=== PATIENT | female | born 1970 | race Caucasian/White ===

== ENCOUNTER → 2016-11-19 | Outpatient (CLI) | payer OTHER ==
[2016-11-19 12:14] LABS: MEAN CORPUSCULAR HEMOGLOBIN 29.1 pg (27.0-33.0); MEAN CORPUSCULAR HGB CONC 33.8 g/dl (32.0-36.5); MEAN CORPUSCULAR VOLUME 86.1 fl (80.0-96.0); RED CELL DISTRIBUTION WIDTH 13.5 % (11.5-14.5)
[2016-11-19 13:45] LABS: ALBUMIN 3.8 GM/DL (3.2-5.2); ALKALINE PHOSPHATASE 97 U/L (45-117); ALT/SGPT 27 U/L (12-78); ANION GAP 9 MEQ/L (8-16); AST/SGOT 14 U/L (15-37); BILIRUBIN,TOTAL 0.6 MG/DL (0.2-1.0); BLOOD UREA NITROGEN 12 MG/DL (7-18); CALCIUM LEVEL 8.8 MG/DL (8.5-10.1); CARBON DIOXIDE LEVEL 24 MEQ/L (21-32); CHLORIDE LEVEL 105 MEQ/L (98-107); CHOLESTEROL LEVEL 183 MG/DL (<200); CREATININE FOR GFR 0.95 MG/DL (0.55-1.02); FERRITIN 20 NG/ML (8-252); GLOMERULAR FILTRATION RATE > 60.0 (>58); GLUCOSE, FASTING 93 MG/DL (70-105); PERCENT SATURATION 21.8 % (13.2-37.4); POTASSIUM SERUM 4.2 MEQ/L (3.5-5.1); SODIUM LEVEL 138 MEQ/L (136-145); TOTAL IRON BINDING CAPACITY 385 UG/DL (250-450); TOTAL PROTEIN 7.6 GM/DL (6.4-8.2); TRIGLYCERIDES LEVEL 135 MG/DL (<150)
== END ==
LOC: M WUC 08:47
PROVIDERS: ATTEND Physician Assistant
DX: D50.0 Iron deficiency anemia secondary to blood loss (chronic) (principal)

== ENCOUNTER → 2018-05-04 | Outpatient (CLI) | payer BC | LOC: M WHC 13:08 | DX: Z12.31 Encounter for screening mammogram for malignant neoplasm of breast (principal) | CPT/HCPCS: 77067 ==

== ENCOUNTER → 2018-05-04 | Outpatient (REF) | payer OTHER ==
[2018-05-06 15:28] LABS: HPV HYBRID CAPTURE II Negative (Negative)
== END ==
LOC: M SFHCWAGY 16:16
DX: Z12.4 Encounter for screening for malignant neoplasm of cervix (principal)

== ENCOUNTER → 2018-05-31 | Outpatient (CLI) | payer OTHER ==
[2018-05-31 12:47] LABS: HEMATOCRIT 36.6 % (36.0-47.0); HEMOGLOBIN 11.5 g/dl (12.0-15.5); MEAN CORPUSCULAR HEMOGLOBIN 25.1 pg (27.0-33.0); MEAN CORPUSCULAR HGB CONC 31.4 g/dl (32.0-36.5); MEAN CORPUSCULAR VOLUME 79.9 fl (80.0-96.0); PLATELET COUNT, AUTOMATED 337 10^3/uL (150-450); RED BLOOD COUNT 4.58 10^6/uL (4.00-5.40); RED CELL DISTRIBUTION WIDTH 15.9 % (11.5-14.5); WHITE BLOOD COUNT 7.9 10^3/uL (4.0-10.0)
[2018-05-31 13:05] LABS: ALBUMIN 3.6 GM/DL (3.2-5.2); ALBUMIN/GLOBULIN RATIO 0.97 (1.00-1.93); ALKALINE PHOSPHATASE 97 U/L (45-117); ALT/SGPT 27 U/L (12-78); ANION GAP 11 MEQ/L (8-16); AST/SGOT 17 U/L (7-37); BILIRUBIN,TOTAL 0.5 MG/DL (0.2-1.0); BLOOD UREA NITROGEN 15 MG/DL (7-18); CARBON DIOXIDE LEVEL 23 MEQ/L (21-32); CHLORIDE LEVEL 106 MEQ/L (98-107); CHOLESTEROL LEVEL 175 MG/DL (<200); CHOLESTEROL RISK RATIO 4.069 (<5); FOLATE 16.2 NG/ML; FREE T4 0.99 NG/DL (0.76-1.46); GLOMERULAR FILTRATION RATE > 60.0 (>58); GLUCOSE, FASTING 87 MG/DL (70-100); HDL CHOLESTEROL 43 MG/DL (>40); LDL CHOLESTEROL 103 MG/DL (<100); NON-HDL-C 132 MG/DL; POTASSIUM SERUM 4.2 MEQ/L (3.5-5.1); SODIUM LEVEL 140 MEQ/L (136-145); TOTAL PROTEIN 7.3 GM/DL (6.4-8.2); TRIGLYCERIDES LEVEL 143 MG/DL (<150)
== END ==
LOC: M WUC 08:46
DX: F41.9 Anxiety disorder, unspecified (principal); E78.49 Other hyperlipidemia
CPT/HCPCS: 82746

== ENCOUNTER → 2018-09-21 | Outpatient (CLI) | payer BC, OTHER ==
[~2018-09-21] MED LIST: ISOVUE-370 76% 100ML VIAL (Q9967) As Ordered ONE
--- NOTE | 2018-09-21 16:29 | REP ---
CT Head without and with contrast HISTORY: Smelling difficulty CONTRAST: Isovue 370 75 ml COMPARISON: 02/21/2006 There is no intraparenchymal hemorrhage, acute infarct, mass or midline shift. There is no abnormal enhancement. The ventricular system is normal in appearance. There is no extra cerebral collection. Mucosal thickening is present in the left ethmoid maxillary and frontal sinuses. Impression: There is no intracranial lesion. Electronically Signed by Negrito Buchanan MD 09/21/2018 04:21 P
--- NOTE | 2018-09-21 16:45 | REP ---
MAXILLOFACIAL CT WITHOUT CONTRAST: HISTORY: Post nasal drip. There is complete opacification of the left maxillary sinus. A dystrophic calcification is present in the sinus. There is expansion of the medial wall of the left maxillary sinus with partial erosion of the left uncinate process . There is extension into the nasal passage with partial erosion of the left middle nasal turbinate. Moderate mucosal thickening is present in the left ethmoid sinus. There is complete opacification of the left frontal sinus. Minimal mucosal thickening is present in the right maxillary sinus. The remaining sinuses are clear. The right ostiomeatal unit is patent. The middle and inferior nasal turbinates are partially paradoxical. There is mild deviation of the nasal septum to the left. The cribriform plate, medial oliva of the orbits and optic canals are intact. The carotid canals form a segment of the posterolateral oliva of the sphenoid sinus. The sphenoid sinus septum inserts into the left internal carotid canal wall. IMPRESSION: 1. There is complete opacification of the left maxillary sinus with with expansion of the medial walled left maxillary sinus and partial erosion of the the left uncinate process. There is extension into the left nasal passage with partial erosion of the left middle nasal turbinate. This may represent a mucocele, however, the possibility of an antral choanal polyp cannot be excluded. 2. Sinus mucosal thickening as described above. Electronically Signed by Negrito Buchanan MD 09/21/2018 04:50 P
== END ==
LOC: M RAD 15:26
PROVIDERS: ATTEND Physician Assistant
DX: R09.82 Postnasal drip (principal)
CPT/HCPCS: 70470; 70486; Q9967

== ENCOUNTER 2018-12-01 08:02 | Day surgery (SDC) | payer BC, OTHER ==
[~2018-12-01] VITALS: Ht 160 cm; Wt 81.6 kg
[~2018-12-01 08:02] MED LIST changes: -ISOVUE-370 76% 100ML VIAL (Q9967) As Ordered ONE; +MULTCAP PO; +REME15TA PO
[2018-12-01] MEDS ORDERED: VALI2TAB PO (08:52)
[2018-12-01] MEDS ORDERED: ROCURONIUM BROMIDE 50 MG/5 ML VIAL As Ordered ONE (09:15)
[2018-12-01] MEDS ORDERED: PROPOFOL 200 MG/20 ML VIAL As Ordered ONE (09:15)
[2018-12-01] MEDS ORDERED: LIDOCAINE 2% INJ 100 MG/5 ML SDV (FOR ANES.) As Ordered ONE (09:15)
[2018-12-01] MEDS ORDERED: MIDAZOLAM INJ 2 MG/2 ML VIAL (J2250) As Ordered ONE ×2 (09:16→09:37)
[2018-12-01] MEDS ORDERED: fentaNYL 250 MCG/5 ML INJECTION (J3010) As Ordered ONE (09:16)
[2018-12-01] MEDS ORDERED: EPINEPHrine 1MG/ML INJ 30ML MD-VIAL As Ordered ONE (09:17)
[2018-12-01] MEDS ORDERED: LIDOCAINE W/EPINEPHRINE 1% 20ML VIAL As Ordered ONE (09:17)
[2018-12-01] MEDS ORDERED: METHYLENE BLUE 0.5% (5MG/ML) 10 ML AMP (PROVAYBLUE)(Q9968 PER 1MG) As Ordered ONE (09:17)
[2018-12-01] MEDS ORDERED: SODIUM CHLORIDE 0.9% NASAL GEL 15GM (AYR) As Ordered ONE (09:17)
[2018-12-01] MEDS ORDERED: OXYMETAZOLINE NASAL SPRAY (AFRIN) As Ordered ONE (09:20)
[2018-12-01] MEDS ORDERED: NEOSTIGMINE 10 MG/10 ML VIAL (J2710) As Ordered ONE (10:19)
[2018-12-01] MEDS ORDERED: GLYCOPYRROLATE INJ 0.2 MG/ML 2 ML VIAL As Ordered ONE (10:19)
[2018-12-01] MEDS ORDERED: KETOROLAC 60 MG/2 ML VIAL (J1885) As Ordered ONE (10:20)
[2018-12-01] MEDS ORDERED: dexameTHASONE 4 MG/ML 1ML VIAL (J1100) As Ordered ONE (10:20)
[2018-12-01] MEDS ORDERED: ONDANSETRON 4MG/2ML VIAL (J2405) As Ordered ONE (10:20)
[2018-12-01] MEDS ORDERED: METOCLOPRAMIDE INJ 10MG/2ML VIAL (J2765) As Ordered ONE (10:20)
[2018-12-01] MEDS ORDERED: PERCOCET 5MG/325MG TAB PO PRN (12:15)
[2018-12-01] MEDS ORDERED: ONDANSETRON 4MG/2ML VIAL (J2405) IV PRN (12:15)
[2018-12-01] MEDS ORDERED: fentaNYL 100 MCG/2 ML INJECTION (J3010) IV PRN (12:15)
[2018-12-01] MEDS ORDERED: LR 1,000 ML IV SCH (12:15)
[2018-12-01] MEDS ORDERED: METOCLOPRAMIDE INJ 10MG/2ML VIAL (J2765) IV PRN (12:15)
[2018-12-01] MEDS ORDERED: NORCO, ANEXSIA 5/325MG TABLET (HYDROcodone/ACETAMINOPHEN) PO PRN (12:45)
[2018-12-01 13:35] VITALS: BP 136/70
--- NOTE | 2018-12-01 21:02 | RO ---
DATE OF PROCEDURE: 12/01/2018 PREOPERATIVE DIAGNOSIS: Left chronic maxillary/ethmoid/frontal sinusitis with calcification in the middle of the left maxillary sinus. POSTOPERATIVE DIAGNOSIS: Left chronic maxillary/ethmoid/frontal sinusitis with calcification in the middle of the left maxillary sinus. Frozen section of mucosa is inflamed polypoid tissue and removal of calcified material compatible with tooth roots. PROCEDURE: 1. Endoscopic partial ethmoidectomy on the left side. 2. Endoscopic left maxillary sinusotomy with removal of foreign body, compatible with retained tooth roots. 3. Endoscopic left balloon frontal Sinuplasty. 4. Septoplasty. 5. Placement of Propel contour stent in the left frontal sinus opening, medializing the middle turbinate on the left side as well as stenting of the frontal sinus. SURGEON: Gokul Rivas Jr, MD CLERICAL COORDINATOR: ANESTHESIA: General via endotracheal tube by Dr. Charles and BILLIARD TABLE ASSEMBLER. DESCRIPTION OF PROCEDURE: With the patient in the supine position after being induced, intubated, prepped and draped in the usual fashion, the patient was placed in appropriate position, head elevated approximately 30 degrees. After proper patient identification and time-out of the procedure was performed and all were in agreement, the patient was prepped and draped in usual fashion and topical Afrin was placed in each nasal cavity on pledgets. Once this was done, approximately 7 mL of injection with 1% lidocaine, 1:100,000 epinephrine was injected in the mucoperichondrial and mucoperiosteal plane. A left hemitransfixion incision ensued with a #15 blade. Utilizing the [place] elevator, the left nasal cavity had the mucoperichondrium and the mucoperiosteum elevated in the area of the left middle turbinate. This could not be seen because of the significant septal deviation. Once this was elevated to bony cartilaginous junction, the mucoperiosteum was elevated posteriorly as well as inferior, decussations were dissected off the left side and the bony cartilaginous junction, as again mentioned, were . The mucoperiosteum was elevated on both sides. Then utilizing the [employer] superiorly, the bone was released, perpendicular portion of the ethmoid as well as inferiorly and large left deflecting bony spur was removed and also inferiorly, posteriorly this was removed. This opened up the left middle meatus to be able to see the region pressing on the inferior turbinate, and there was bulging. Jamie pus could be seen emanating from the natural ostium site that was initially plugged with polypoid tissue. Culture was obtained with aerobic, anaerobic and fungal, and then using the maxillary seeker, this was identified. The middle turbinate had already been, on the left side, medialized. Injection at the base of the middle turbinate was performed and partial ethmoidectomy was performed. This patient then had a pledget that was placed in the middle meatus region. Suction was placed in the maxillary opening with a curved maxillary olive tip. Jamie pus could be identified. Straight through cut was used to posteriorly and inferiorly open up the maxillary ostium, also pediatric backbiter was used to open that up a little bit more. Uncinate was removed with 45 degree through cut Nawaf-Blakarstenley and microdebrider. At this point, the left frontal sinus with the Accelerant balloon device was identified and then the Thao device was used in cannulating the left frontal sinus which illuminated quite nicely. The balloon was deployed and multiple inflations were used at 12 cm H20 and then progressively releasing and coming out where there was a large dilation present. After this was done, the maxillary sinusotomy site was opened a little bit more, the patient had part of it done with the pediatric backbiter, as well as going anteriorly. A portion of the maxillary sinus which looked angry and polypoid was sent for frozen sections and was negative for any evidence of malignancy. The films were reviewed, and it showed that the anterior portion of the middle turbinate attachment was just slightly anterior to where the calcification was in the maxillary sinus. This was probed and could not be seen with a 30-degree scope. Therefore, a cyclops scope was used, and eventually between the thickened polypoid tissue, there was a whitish material that was identified. Once this was identified, it was palpated. It was hard but was in the middle of all polypoid inflammation. Once this was further identified, 120 degree frontal Giraffe was turned upside down and placed through the maxillary sinusotomy site and then the cyclops scope was placed and moved for angulation of 70 degrees and then what appeared to be white and compatible with calcification was identified. It was grasped with the 120 degree Giraffe frontal forcep that was turned upside down, brought out through the maxillary medial antrotomy site, and then taken out through the nose. It measured approximately a centimeter in length by approximately half a millimeter in width and was sent to the pathologist. The maxillary sinus was then irrigated. The frontal sinus was irrigated as well after being re-ballooned and then a contour stent was placed after partial ethmoidectomy was done with the straight shot microdebrider. The contour device was deployed, and it was hydrated. Then, the left mucoperichondrium was placed back into its normal position, and using two stitches of chromic, septocolumellar stitches were placed. Then Mcadams packs were placed in each nasal cavity and then sutured transseptally. Once this was done, Nasopore piece was trimmed and placed in the superior aspect intranasally in these areas and hydrated as well. At this point, there were no problems, no complications. Estimated blood loss was approximately 30-50 mL. There were no complications. The patient was taken back to recovery room in satisfactory condition.
== END 2018-12-01 13:45 | disposition home or self-care (01) ==
LOC: M SDC 08:02
PROVIDERS: ATTEND Otolaryngology
DX: J34.2 Deviated nasal septum (principal); J32.0 Chronic maxillary sinusitis; J32.1 Chronic frontal sinusitis; J32.2 Chronic ethmoidal sinusitis; F41.9 Anxiety disorder, unspecified; Z88.8 Allergy status to other drugs, medicaments and biological substances; Z79.899 Other long term (current) drug therapy
CPT/HCPCS: 30520; 30999; 31254; 31267; 31296; 87070; 87075; 87076; 87102; 87186; 87205; 88300; 88305; C2625; J1100; J1885; J2250; J2405; J2710; J2765; J3010; Q9968

== ENCOUNTER → 2019-05-07 | Outpatient (CLI) | payer BC ==
[~2019-05-07] MED LIST changes: +VALI2TAB PO
--- NOTE | 2019-05-07 14:55 | REPMRS ---
Patient History The patient states she had a clinical breast exam in 05/2019. Family history of colorectal cancer under age 50 in maternal aunt. 3D TOMOSYNTHESIS WAS PERFORMED. The Lawrence Thompson lifetime risk for breast cancer is 9.1%. Digital Woman Screen Mammo: May 07, 2019 - Exam #: [id number] Bilateral CC and MLO view(s) were taken. Technologist: Cathryn Rob, Technologist Prior study comparison: May 04, 2018, bilateral digital woman screen mammo performed at [facility]. 2016, bilateral digital mammo screening bilat, performed at [facility]. FINDINGS: There are scattered fibroglandular densities. There has been no change in the appearance of the mammogram from the prior studies. There is a mild amount of residual fibroglandular tissue which is fairly symmetric. There is no interval development of dominant mass, architectural distortion, or clustered microcalcification suggestive of malignancy. Assessment: BI-RADS/ACR category 1 mammogram. Negative Mammogram. Recommendation Routine screening mammogram in 1 year (for women over age 40). This mammogram was interpreted with the aid of an FDA-approved computer-aided dectection system. Electronically Signed By: Otoniel Low MD 05/07/19 1845
== END ==
LOC: M WHC 13:24
PROVIDERS: ATTEND Nurse Practitioner Family
DX: Z12.31 Encounter for screening mammogram for malignant neoplasm of breast (principal)

== ENCOUNTER → 2019-07-13 | Outpatient (REF) | payer OTHER | LOC: M LAB REF 16:20 | PROVIDERS: ATTEND Nurse Practitioner | DX: B35.3 Tinea pedis (principal) ==

== ENCOUNTER → 2019-09-07 | Outpatient (REF) | payer OTHER | LOC: M SFHCADAM 10:34 | PROVIDERS: ATTEND Physician Assistant | DX: F41.9 Anxiety disorder, unspecified (principal); R03.0 Elevated blood-pressure reading, without diagnosis of hypertension; R63.5 Abnormal weight gain; E78.00 Pure hypercholesterolemia, unspecified ==

== ENCOUNTER → 2019-09-26 | Outpatient (CLI) | payer OTHER ==
[2019-09-26 09:35] LABS: HEMATOCRIT 42.1 % (36.0-47.0); HEMOGLOBIN 13.8 g/dl (12.0-15.5); MEAN CORPUSCULAR HEMOGLOBIN 29.2 pg (27.0-33.0); MEAN CORPUSCULAR HGB CONC 32.8 g/dl (32.0-36.5); MEAN CORPUSCULAR VOLUME 89.2 fl (80.0-96.0); PLATELET COUNT, AUTOMATED 280 10^3/uL (150-450); RED BLOOD COUNT 4.72 10^6/uL (4.00-5.40); WHITE BLOOD COUNT 7.7 10^3/uL (4.0-10.0)
[2019-09-26 10:05] LABS: ALBUMIN 3.9 GM/DL (3.2-5.2); ALT/SGPT 27 U/L (12-78); BILIRUBIN,TOTAL 0.5 MG/DL (0.2-1.0); BLOOD UREA NITROGEN 12 MG/DL (7-18); CARBON DIOXIDE LEVEL 27 MEQ/L (21-32); CHLORIDE LEVEL 107 MEQ/L (98-107); CHOLESTEROL LEVEL 178 MG/DL (<200); CREATININE FOR GFR 0.97 MG/DL (0.55-1.30); FREE T4 1.04 NG/DL (0.76-1.46); GLOMERULAR FILTRATION RATE > 60.0 (>58); GLUCOSE, FASTING 92 MG/DL (70-100); HDL CHOLESTEROL 40 MG/DL (>40); LDL CHOLESTEROL 101 MG/DL (<100); NON-HDL-C 138 MG/DL; POTASSIUM SERUM 4.3 MEQ/L (3.5-5.1); SODIUM LEVEL 142 MEQ/L (136-145); TOTAL PROTEIN 7.3 GM/DL (6.4-8.2); TRIGLYCERIDES LEVEL 185 MG/DL (<150)
[2019-09-26 10:35] LABS: TOTAL 25(OH) VITAMIN D 27.8 NG/ML (30.0-100.0)
== END ==
LOC: M WUC 08:24
PROVIDERS: ATTEND Physician Assistant
DX: F41.9 Anxiety disorder, unspecified (principal); R03.0 Elevated blood-pressure reading, without diagnosis of hypertension

== ENCOUNTER → 2019-10-05 | Outpatient (CLI) | payer BC, OTHER ==
--- NOTE | 2019-10-06 11:39 | ECHO ---
DATE OF PROCEDURE: 10/05/2019 REFERRING PHYSICIAN: ISABELLA Hope INDICATION: Abnormal ECG. HEIGHT: 5 feet 3 inches WEIGHT: 180 pounds 2D MEASUREMENTS: LVOT: 1.9 cm Left atrium: 3.5 cm Aortic root: 2.8 cm Left ventricle diastole: 4.2 cm Ventricular septum: 1.05 cm Posterior wall: 0.99 cm Inferior vena cava: 1.2 cm DOPPLER MEASUREMENTS: No aortic regurgitation. No mitral regurgitation. No tricuspid regurgitation. No pulmonic regurgitation. Aortic valve velocity: 131 cm/s LVOT velocity: 110 cm/s LVOT VTI: 20.0 cm Mitral E velocity: 87.3 cm/s Mitral A velocity: 103 cm/s Pulmonary acceleration time: 116 ms MITRAL ANNULAR TISSUE DOPPLER: E prime septal: 17.6 cm/s E prime lateral: 11.0 cm/s DESCRIPTION: Rhythm was sinus tachycardia. Image quality was good. This was a 2D, M-mode, color flow Doppler and pulse wave Doppler examination that included mitral annular tissue Doppler. CONCLUSIONS: 1. Hyperdynamic left ventricle (LV) systolic function. Left ventricular ejection fraction (LVEF) 75-80% by visual estimate. No regional wall motion abnormalities of the left ventricle. Normal left ventricle size and wall thickness. Normal LV diastolic function. 2. Normal right ventricle size with hyperdynamic right ventricle (RV) systolic function. 3. No pericardial effusion. 4. Otherwise normal echocardiogram Doppler.
== END ==
LOC: M CARPUL 08:31
PROVIDERS: ATTEND Physician Assistant
DX: F41.9 Anxiety disorder, unspecified (principal)

== ENCOUNTER → 2020-05-08 | Outpatient (REF) | payer BC, OTHER | LOC: M SFHCWAGY 17:15 | PROVIDERS: ATTEND Nurse Practitioner Family | DX: Z12.4 Encounter for screening for malignant neoplasm of cervix (principal) | CPT/HCPCS: 87624; G0123 ==

== ENCOUNTER → 2020-05-08 | Outpatient (CLI) | payer BC ==
--- NOTE | 2020-05-08 15:13 | REPMRS ---
Patient History The patient states she had a clinical breast exam in 2019. Family history of colorectal cancer under age 50 in maternal aunt. 3D TOMOSYNTHESIS WAS PERFORMED. The Lawrence Thompson lifetime risk for breast cancer is 9.0%. Voljefferson salazar a. Digital Woman Screen Mammo: May 08, 2020 - Exam #: [id number] Bilateral CC and MLO view(s) were taken. Technologist: Yen Franks, Technologist Prior study comparison: May 07, 2019, bilateral digital woman screen mammo performed at [facility]. May 04, 2018, bilateral digital woman screen mammo performed at [facility]. FINDINGS: There are scattered fibroglandular densities. There has been no change in the appearance of the mammogram from the prior studies. There is a mild amount of residual fibroglandular tissue which is fairly symmetric. There is no interval development of dominant mass, architectural distortion, or clustered microcalcification suggestive of malignancy. Assessment: BI-RADS/ACR category 1 mammogram. Negative Mammogram. Recommendation Routine screening mammogram in 1 year (for women over age 40). This mammogram was interpreted with the aid of an FDA-approved computer-aided dectection system. Electronically Signed By: Otoniel Low MD 05/08/20 [id number]
== END ==
LOC: M WHC 12:58
PROVIDERS: ATTEND Nurse Practitioner Family
DX: Z12.31 Encounter for screening mammogram for malignant neoplasm of breast (principal)

== ENCOUNTER → 2021-07-28 | Outpatient (CLI) | payer OTHER, BC ==
[~2021-07-28] MED LIST changes: +MIRT-62 PO; -REME15TA PO
[2021-07-28 09:32] LABS: HEMATOCRIT 39.2 % (36.0-47.0); HEMOGLOBIN 12.6 g/dl (12.0-15.5); MEAN CORPUSCULAR HEMOGLOBIN 28.9 pg (27.0-33.0); MEAN CORPUSCULAR HGB CONC 32.1 g/dl (32.0-36.5); MEAN CORPUSCULAR VOLUME 89.9 fl (80.0-96.0); PLATELET COUNT, AUTOMATED 238 10^3/uL (150-450); RED BLOOD COUNT 4.36 10^6/uL (4.00-5.40); WHITE BLOOD COUNT 12.5 10^3/uL (4.0-10.0)
[2021-07-28 10:07] LABS: ALBUMIN 3.3 GM/DL (3.2-5.2); ALT/SGPT 128 U/L (12-78); BILIRUBIN,TOTAL 0.7 MG/DL (0.2-1.0); BLOOD UREA NITROGEN 13 MG/DL (7-18); CARBON DIOXIDE LEVEL 26 MEQ/L (21-32); CHLORIDE LEVEL 109 MEQ/L (98-107); CHOLESTEROL LEVEL 170 MG/DL (<200); CHOLESTEROL RISK RATIO 6.538 (<5); CREATININE FOR GFR 1.03 MG/DL (0.55-1.30); FREE T4 1.33 NG/DL (0.76-1.46); GLOMERULAR FILTRATION RATE > 60.0 (>58); GLUCOSE, FASTING 96 MG/DL (70-100); HDL CHOLESTEROL 26 MG/DL (>40); LDL CHOLESTEROL 88 MG/DL (<100); NON-HDL-C 144 MG/DL; POTASSIUM SERUM 4.2 MEQ/L (3.5-5.1); SODIUM LEVEL 141 MEQ/L (136-145); TOTAL PROTEIN 7.1 GM/DL (6.4-8.2); TRIGLYCERIDES LEVEL 280 MG/DL (<150)
== END ==
LOC: M WUC 08:20
PROVIDERS: ATTEND Physician Assistant
DX: E78.00 Pure hypercholesterolemia, unspecified (principal); R03.0 Elevated blood-pressure reading, without diagnosis of hypertension; F41.9 Anxiety disorder, unspecified; R63.5 Abnormal weight gain

== ENCOUNTER → 2021-08-12 | Outpatient (REF) | payer OTHER ==
[2021-08-12 17:22] LABS: BASO # 0.1 10^3/uL (0.0-0.2); BASO % 0.7 % (0.0-1.0); EOS # 0.3 10^3/uL (0.0-0.5); EOS % 3.2 % (0.0-3.0); HEMATOCRIT 41.4 % (36.0-47.0); HEMOGLOBIN 13.1 g/dl (12.0-15.5); LYMPH # 4.1 10^3/uL (1.5-5.0); LYMPH % 43.4 % (24.0-44.0); MEAN CORPUSCULAR HEMOGLOBIN 28.4 pg (27.0-33.0); MEAN CORPUSCULAR HGB CONC 31.6 g/dl (32.0-36.5); MEAN CORPUSCULAR VOLUME 89.8 fl (80.0-96.0); MONO # 0.8 10^3/uL (0.0-0.8); MONO % 8.4 % (2.0-8.0); NEUTROPHILS # 4.1 10^3/uL (1.5-8.5); NEUTROPHILS % 43.7 % (36.0-66.0); PLATELET COUNT, AUTOMATED 250 10^3/uL (150-450); RED BLOOD COUNT 4.61 10^6/uL (4.00-5.40); WHITE BLOOD COUNT 9.5 10^3/uL (4.0-10.0)
[2021-08-12 17:30] LABS: ALBUMIN 3.7 GM/DL (3.2-5.2); ALT/SGPT 66 U/L (12-78); BILIRUBIN,TOTAL 0.5 MG/DL (0.2-1.0); BLOOD UREA NITROGEN 12 MG/DL (7-18); CALCIUM LEVEL 9.5 MG/DL (8.5-10.1); CARBON DIOXIDE LEVEL 26 MEQ/L (21-32); CHLORIDE LEVEL 106 MEQ/L (98-107); CREATININE FOR GFR 0.95 MG/DL (0.55-1.30); GLOMERULAR FILTRATION RATE > 60.0 (>58); GLUCOSE, FASTING 107 MG/DL (70-100); POTASSIUM SERUM 3.8 MEQ/L (3.5-5.1); SODIUM LEVEL 140 MEQ/L (136-145); TOTAL PROTEIN 7.5 GM/DL (6.4-8.2)
[2021-08-12 17:46] LABS: HEPATITIS B SURFACE ANTIGEN NEGATIVE (NEGATIVE)
[2021-08-12 18:13] LABS: HEPATITIS B CORE ANTIBODY IGM NEGATIVE (NEGATIVE)
== END ==
LOC: M SFHCADAM 14:03
PROVIDERS: ATTEND Physician Assistant
DX: R19.7 Diarrhea, unspecified (principal); R74.8 Abnormal levels of other serum enzymes; E78.6 Lipoprotein deficiency

== ENCOUNTER → 2022-01-05 | Outpatient (REF) | payer OTHER | LOC: M SFHCWAGY 13:00 | PROVIDERS: ATTEND Obstetrics & Gynecology | DX: Z12.4 Encounter for screening for malignant neoplasm of cervix (principal) | CPT/HCPCS: 87624; G0123 ==

== ENCOUNTER → 2022-01-05 | Outpatient (CLI) | payer BC, OTHER | LOC: M WHC 09:32 | PROVIDERS: ATTEND Obstetrics & Gynecology | DX: Z12.31 Encounter for screening mammogram for malignant neoplasm of breast (principal) ==

== ENCOUNTER → 2022-04-06 | Outpatient (CLI) | payer BC, OTHER ==
[~2022-04-06] MED LIST changes: +VITMTA PO
== END ==
LOC: M WHC 13:25
PROVIDERS: ATTEND Obstetrics & Gynecology
DX: N85.8 Other specified noninflammatory disorders of uterus (principal); N93.9 Abnormal uterine and vaginal bleeding, unspecified

== ENCOUNTER → 2022-04-14 | Outpatient (CLI) | payer BC, OTHER ==
[~2022-04-14] MED LIST changes: +MEDR10TA PO
[2022-04-14 18:41] LABS: HEMATOCRIT 38.4 % (36.0-47.0); HEMOGLOBIN 12.6 g/dl (12.0-15.5); MEAN CORPUSCULAR HEMOGLOBIN 30.1 pg (27.0-33.0); MEAN CORPUSCULAR HGB CONC 32.8 g/dl (32.0-36.5); MEAN CORPUSCULAR VOLUME 91.6 fl (80.0-96.0); PLATELET COUNT, AUTOMATED 291 10^3/uL (150-450); RED BLOOD COUNT 4.19 10^6/uL (4.00-5.40); WHITE BLOOD COUNT 8.8 10^3/uL (4.0-10.0)
== END ==
LOC: M PLALAB 14:58
PROVIDERS: ATTEND Obstetrics & Gynecology
DX: N93.9 Abnormal uterine and vaginal bleeding, unspecified (principal)

== ENCOUNTER → 2022-04-19 | Outpatient (CLI) | payer BC, OTHER ==
[~2022-04-19] MED LIST changes: +COLA100C5 PO; +IBUP80TA PO; +ONDA4TAB6 PO
== END ==
LOC: M LABSMTC 10:48
PROVIDERS: ATTEND Anesthesiology
DX: Z01.818 Encounter for other preprocedural examination (principal); Z11.52 Encounter for screening for COVID-19

== ENCOUNTER 2022-04-21 08:53 | Day surgery (SDC) | payer BC, OTHER ==
[~2022-04-21] VITALS: Ht 157.5 cm; Wt 81.6 kg
[~2022-04-21 08:53] MED LIST changes: -COLA100C5 PO; -IBUP80TA PO; -ONDA4TAB6 PO; +ceFAZolin SOD 2 GM in IV 1 EA IV ONE
[2022-04-21 09:39] LABS: HEMOGLOBIN 12.2 g/dl (12.0-15.5); MEAN CORPUSCULAR HEMOGLOBIN 29.5 pg (27.0-33.0); MEAN CORPUSCULAR VOLUME 89.4 fl (80.0-96.0); PLATELET COUNT, AUTOMATED 277 10^3/uL (150-450); RED BLOOD COUNT 4.14 10^6/uL (4.00-5.40); WHITE BLOOD COUNT 7.7 10^3/uL (4.0-10.0)
[2022-04-21] MEDS ORDERED: LR 1,000 ML IV SCH ×3 (09:50→12:35)
[2022-04-21] MEDS ORDERED: METHYLENE BLUE 0.5% (5MG/ML) 10 ML AMP (PROVAYBLUE) As Ordered ONE (09:58)
[2022-04-21] MEDS ORDERED: BUPIVACAINE HCL 0.25% 30ML VIAL As Ordered ONE (09:58)
[2022-04-21] MEDS ORDERED: MIDAZOLAM INJ 2MG/2ML VIAL (J2250 PER 1MG) As Ordered ONE (10:34)
[2022-04-21] MEDS ORDERED: HYDROmorphone HCL 2MG/ML 1ML VIAL As Ordered ONE (10:34)
[2022-04-21] MEDS ORDERED: METOCLOPRAMIDE INJ 10MG/2ML VIAL (J2765 PER 1) As Ordered ONE (10:34)
[2022-04-21] MEDS ORDERED: dexameTHASONE 4 MG/ML 1ML VIAL (J1100 PER 1MG) As Ordered ONE (10:34)
[2022-04-21] MEDS ORDERED: propofoL 200 MG/20 ML VIAL As Ordered ONE ×2 (10:34→12:05)
[2022-04-21] MEDS ORDERED: fentaNYL 250 MCG/5 ML INJECTION As Ordered ONE (10:34)
[2022-04-21] MEDS ORDERED: SUGAMMADEX SODIUM 500 MG/5 ML VIAL (BRIDION) As Ordered ONE (10:34)
[2022-04-21] MEDS ORDERED: ONDANSETRON 4MG 2ML VIAL As Ordered ONE (10:34)
[2022-04-21] MEDS ORDERED: LIDOCAINE 2% 100MG/5ML SDV (FOR ANES.) As Ordered ONE (10:34)
[2022-04-21] MEDS ORDERED: KETOROLAC 60MG 2ML VIAL As Ordered ONE (10:34)
[2022-04-21] MEDS ORDERED: ROCURONIUM BROMIDE 50 MG/5 ML VIAL As Ordered ONE (10:34)
[2022-04-21] MEDS ORDERED: ACETAMINOPHEN 1000MG 100ML IV BTL (OFIRMEV) (J0131 PER 10MG) As Ordered ONE (10:34)
[2022-04-21] MEDS ORDERED: ONDA4TAB6 PO (12:24)
[2022-04-21] MEDS ORDERED: COLA100C5 PO (12:24)
[2022-04-21] MEDS ORDERED: IBUP80TA PO (12:24)
[2022-04-21] MEDS ORDERED: ONDANSETRON 4MG 2ML VIAL IV PRN ×2 (12:30→12:35)
[2022-04-21] MEDS ORDERED: MORPHINE 4 MG/ML 1ML VIAL/SYRINGE IV PRN (12:30)
[2022-04-21] MEDS ORDERED: HYDROMORPHONE HCL 0.5 MG/ 0.5 ML SYRINGE (J1170 PER 1) IV PRN (12:35)
[2022-04-21] MEDS ORDERED: oxyCODONE 5MG TAB PO PRN (12:35)
[2022-04-21] MEDS ORDERED: fentaNYL 100 MCG/2 ML INJECTION IV PRN (12:35)
[2022-04-21 16:00] VITALS: BP 133/71
[2022-04-21 16:30] VITALS: BP 131/67
[2022-04-21 17:00] VITALS: BP 129/69
[2022-04-21] MEDS ORDERED: KETOROLAC 30 MG/ML 1ML VIAL IV SCH (18:00)
[2022-04-21 19:56] VITALS: BP 127/65
[2022-04-21] MEDS ORDERED: DOCUSATE SODIUM 100MG CAPSULE PO SCH (21:00)
[2022-04-22] MEDS ORDERED: IBUPROFEN 800 MG TAB PO SCH (20:00)
== END 2022-04-21 20:30 | disposition home or self-care (01) ==
LOC: M SDC 08:53 → M PED 15:35 → M SDC 20:30
PROVIDERS: ATTEND Obstetrics & Gynecology
DX: N80.0 Endometriosis of uterus (principal); N72 Inflammatory disease of cervix uteri; N88.8 Other specified noninflammatory disorders of cervix uteri; R10.2 Pelvic and perineal pain; F41.9 Anxiety disorder, unspecified; A69.20 Lyme disease, unspecified; Z87.891 Personal history of nicotine dependence; Z79.899 Other long term (current) drug therapy; Z88.1 Allergy status to other antibiotic agents
CPT/HCPCS: 36415; 58571; 81025; 84702; 85027; 86850; 86900; 86901; 88307; J0131; J0690; J1100; J1170; J1885; J2250; J2405; J2765; J3010; Q9968; S2900

== ENCOUNTER → 2022-09-13 | Outpatient (CLI) | payer BC, OTHER ==
[~2022-09-13] MED LIST changes: +COLA100C5 PO; +IBUP80TA PO; -MEDR10TA PO; +MEDR10TA9 PO; +ONDA4TAB6 PO; -ceFAZolin SOD 2 GM in IV 1 EA IV ONE
== END ==
LOC: M LABSMTC 09:35
PROVIDERS: ATTEND Anesthesiology
DX: Z01.812 Encounter for preprocedural laboratory examination (principal); Z11.52 Encounter for screening for COVID-19

== ENCOUNTER 2022-09-16 08:47 | Day surgery (SDC) | payer BC, OTHER ==
[~2022-09-16] VITALS: Ht 160 cm; Wt 85.6 kg
[~2022-09-16 08:47] MED LIST changes: +LIDOCAINE 2% 100MG/5ML SDV (FOR ANES.) As Ordered ONE; +NS 1,000 ML IV ONE; +propofoL 200 MG/20 ML VIAL As Ordered ONE
[2022-09-16 10:35] VITALS: BP 138/74
== END 2022-09-16 10:52 | disposition home or self-care (01) ==
LOC: M OPP 08:47
PROVIDERS: ATTEND Internal Medicine Gastroenterology
DX: Z12.11 Encounter for screening for malignant neoplasm of colon (principal); D12.4 Benign neoplasm of descending colon; D12.5 Benign neoplasm of sigmoid colon; K57.30 Diverticulosis of large intestine without perforation or abscess without bleeding; K64.8 Other hemorrhoids; F41.9 Anxiety disorder, unspecified; Z79.899 Other long term (current) drug therapy; Z87.891 Personal history of nicotine dependence; Z80.0 Family history of malignant neoplasm of digestive organs; Z80.1 Family history of malignant neoplasm of trachea, bronchus and lung

== ENCOUNTER 2022-11-30 21:43 | Emergency (ER) | payer BC, OTHER ==
[~2022-11-30] VITALS: Ht 160 cm; Wt 81.8 kg
[~2022-11-30 21:43] MED LIST changes: -LIDOCAINE 2% 100MG/5ML SDV (FOR ANES.) As Ordered ONE; -NS 1,000 ML IV ONE; -propofoL 200 MG/20 ML VIAL As Ordered ONE
[2022-12-01 00:07] VITALS: BP 166/105
== END 2022-12-01 00:11 | disposition home or self-care (01) ==
LOC: M ED 21:43
DX: S02.2XXA Fracture of nasal bones, initial encounter for closed fracture (principal); V89.2XXA Person injured in unspecified motor-vehicle accident, traffic, initial encounter; Y92.410 Unspecified street and highway as the place of occurrence of the external cause; F41.9 Anxiety disorder, unspecified; Z88.1 Allergy status to other antibiotic agents; Z88.8 Allergy status to other drugs, medicaments and biological substances; Z79.899 Other long term (current) drug therapy

== ENCOUNTER → 2023-01-06 | Outpatient (CLI) | payer BC, OTHER | LOC: M WHC 13:38 | PROVIDERS: ATTEND Physician Assistant | DX: Z12.31 Encounter for screening mammogram for malignant neoplasm of breast (principal) ==

== ENCOUNTER → 2023-02-02 | Outpatient (CLI) | payer BC, OTHER ==
[2023-02-02 12:03] LABS: HEMATOCRIT 43.2 % (36.0-47.0); HEMOGLOBIN 14.2 g/dl (12.0-15.5); MEAN CORPUSCULAR HEMOGLOBIN 29.5 pg (27.0-33.0); MEAN CORPUSCULAR HGB CONC 32.9 g/dl (32.0-36.5); MEAN CORPUSCULAR VOLUME 89.8 fl (80.0-96.0); PLATELET COUNT, AUTOMATED 244 10^3/uL (150-450); RED BLOOD COUNT 4.81 10^6/uL (4.00-5.40); WHITE BLOOD COUNT 7.7 10^3/uL (4.0-10.0)
[2023-02-02 12:16] LABS: THYROID STIMULATING HORMONE 1.976 uIU/ML (0.55-4.78)
[2023-02-02 12:17] LABS: FREE T4 1.16 NG/DL (0.89-1.76)
[2023-02-02 12:18] LABS: ALBUMIN 4.2 G/DL (3.2-5.2); ALKALINE PHOSPHATASE 98 U/L (46-116); ALT/SGPT 10 U/L (7.0-40); AST/SGOT 19 U/L (<34); BILIRUBIN,TOTAL 0.8 MG/DL (0.3-1.2); BLOOD UREA NITROGEN 19 MG/DL (9-23); CALCIUM LEVEL 9.3 MG/DL (8.5-10.1); CARBON DIOXIDE LEVEL 28 MMOL/L (20-31); CHLORIDE LEVEL 107 MMOL/L (98-107); CHOLESTEROL LEVEL 178 MG/DL (<200); CHOLESTEROL RISK RATIO 4.87 (<5); CREATININE FOR GFR 0.83 MG/DL (0.55-1.30); GLOMERULAR FILTRATION RATE > 60.0 (>51); GLUCOSE, FASTING 102 MG/DL (60-100); HDL CHOLESTEROL 36.5 MG/DL (>40); LDL CHOLESTEROL 106.5 MG/DL (<100); NON-HDL-C 141.5 MG/DL; POTASSIUM SERUM 4.2 MMOL/L (3.5-5.1); SODIUM LEVEL 141 MMOL/L (136-145); TOTAL PROTEIN 7.1 G/DL (5.7-8.2); TRIGLYCERIDES LEVEL 175 MG/DL (<150)
[2023-02-02 12:26] LABS: HEMOGLOBIN A1c 5.2 % (4.0-6.0)
[2023-02-02 12:36] LABS: CREATININE, URINE 191.1 MG/DL
[2023-02-02 12:37] LABS: MALB URINE SIEMENS < 3.0 MG/L; MAU/CREAT RATIO 1.5 MCG/MG (0.0-30.0)
== END ==
LOC: M WUC 09:14
PROVIDERS: ATTEND Physician Assistant
DX: E78.1 Pure hyperglyceridemia (principal); I10 Essential (primary) hypertension; E66.01 Morbid (severe) obesity due to excess calories; Z68.35 Body mass index [BMI] 35.0-35.9, adult; Z13.1 Encounter for screening for diabetes mellitus; Z12.31 Encounter for screening mammogram for malignant neoplasm of breast

== ENCOUNTER → 2023-09-22 | Outpatient (CLI) | payer BC, OTHER ==
[~2023-09-22] MED LIST changes: -MIRT-62 PO; +MIRT-88 PO
== END ==
LOC: M SOG 08:57
PROVIDERS: ATTEND Orthopaedic Surgery
DX: M25.512 Pain in left shoulder (principal); Z53.9 Procedure and treatment not carried out, unspecified reason

== ENCOUNTER → 2024-02-15 | Outpatient (CLI) | payer BC, OTHER ==
[~2024-02-15] MED LIST changes: +ONDA-282 PO; -ONDA4TAB6 PO
[2024-02-15 10:42] LABS: HEMATOCRIT 42.3 % (36.0-47.0); HEMOGLOBIN 14.2 g/dl (12.0-15.5); MEAN CORPUSCULAR HEMOGLOBIN 30.1 pg (27.0-33.0); MEAN CORPUSCULAR HGB CONC 33.6 g/dl (32.0-36.5); MEAN CORPUSCULAR VOLUME 89.6 fl (80.0-96.0); PLATELET COUNT, AUTOMATED 243 10^3/uL (150-450); RED BLOOD COUNT 4.72 10^6/uL (4.00-5.40); WHITE BLOOD COUNT 8.5 10^3/uL (4.0-10.0)
[2024-02-15 10:49] LABS: ALKALINE PHOSPHATASE 104 U/L (46-116); ALT/SGPT 25 U/L (7.0-40); AST/SGOT 15 U/L (<34); BILIRUBIN,TOTAL 0.8 MG/DL (0.3-1.2); BLOOD UREA NITROGEN 15 MG/DL (9-23); CALCIUM LEVEL 9.5 MG/DL (8.5-10.1); CARBON DIOXIDE LEVEL 27 MMOL/L (20-31); CHLORIDE LEVEL 107 MMOL/L (98-107); CHOLESTEROL LEVEL 194 MG/DL (<200); CHOLESTEROL RISK RATIO 5.65 (<5); CREATININE FOR GFR 0.85 MG/DL (0.55-1.30); GLOMERULAR FILTRATION RATE > 60.0 (>51); GLUCOSE, FASTING 100 MG/DL (60-100); HDL CHOLESTEROL 34.3 MG/DL (>40); LDL CHOLESTEROL 111.9 MG/DL (<100); NON-HDL-C 159.7 MG/DL; POTASSIUM SERUM 3.8 MMOL/L (3.5-5.1); SODIUM LEVEL 140 MMOL/L (136-145); TOTAL PROTEIN 7.1 G/DL (5.7-8.2); TRIGLYCERIDES LEVEL 239 MG/DL (<150)
[2024-02-15 10:51] LABS: FREE T4 1.16 NG/DL (0.89-1.76); THYROID STIMULATING HORMONE 2.088 uIU/ML (0.55-4.78)
[2024-02-15 11:11] LABS: CREATININE, URINE 188.2 MG/DL; MAU/CREAT RATIO 2.1 MCG/MG (0.0-30.0)
== END ==
LOC: M WUC 08:27
PROVIDERS: ATTEND Physician Assistant
DX: L65.9 Nonscarring hair loss, unspecified (principal); I10 Essential (primary) hypertension; E78.00 Pure hypercholesterolemia, unspecified; F41.9 Anxiety disorder, unspecified; Z68.35 Body mass index [BMI] 35.0-35.9, adult

== ENCOUNTER → 2024-07-18 | Outpatient (CLI) | payer BC | LOC: M WHC 09:19 | PROVIDERS: ATTEND Obstetrics & Gynecology | DX: Z12.31 Encounter for screening mammogram for malignant neoplasm of breast (principal) ==

== ENCOUNTER → 2024-07-18 | Outpatient (REF) | payer BC ==
[2024-07-18 13:28] LABS: APPEARANCE, URINE CLOUDY (CLEAR); BACTERIA, URINE AUTO 1+ (NEGATIVE); BILIRUBIN, URINE AUTO NEGATIVE (NEGATIVE); BLOOD, URINE BLOOD NEGATIVE (NEGATIVE); COLOR, URINE YELLOW (YELLOW); GLUCOSE, URINE (UA) AUTO NEGATIVE (NEGATIVE); KETONE, URINE AUTO NEGATIVE (NEGATIVE); LEUKOCYTE ESTERASE, URINE AUTO 3+ (NEGATIVE); MUCUS, URINE SMALL (NEGATIVE); NITRITE, URINE AUTO NEGATIVE (NEGATIVE); PROTEIN, URINE AUTO NEGATIVE (NEGATIVE); RBC, URINE AUTO 2 /HPF (0-3); SQUAMOUS EPITHELIAL CELL UR AU 13 /HPF (0-6); UROBILINOGEN, URINE AUTO 0.2 mg/dL (0.0-2.0); WBC, URINE AUTO 10 /HPF (0-3)
[2024-07-20 16:42] LABS: HPV APTIMA Not Detected (Not Detected)
== END ==
LOC: M SFHCWAGY 12:33
PROVIDERS: ATTEND Obstetrics & Gynecology
DX: Z01.419 Encounter for gynecological examination (general) (routine) without abnormal findings (principal); Z12.72 Encounter for screening for malignant neoplasm of vagina; Z77.9 Other contact with and (suspected) exposures hazardous to health; R82.90 Unspecified abnormal findings in urine
CPT/HCPCS: 81001; 87086; 87624; G0123

== ENCOUNTER → 2025-02-18 | Outpatient (CLI) | payer BC, OTHER ==
[2025-02-18 12:39] LABS: PLATELET COUNT, AUTOMATED 238 10^3/uL (150-450)
[2025-02-18 12:51] LABS: ALT/SGPT 24.0 U/L (7.0-40); AST/SGOT 22.0 U/L (<34); CALCIUM LEVEL 9.4 MG/DL (8.5-10.1); CARBON DIOXIDE LEVEL 25.0 MMOL/L (20-31); CHLORIDE LEVEL 104.0 MMOL/L (98-107); CHOLESTEROL LEVEL 196.0 MG/DL (<200); CHOLESTEROL RISK RATIO 5.02 (<5); CREATININE FOR GFR 0.88 MG/DL (0.55-1.30); GLOMERULAR FILTRATION RATE 79.0 (>51); LDL CHOLESTEROL 111.4 MG/DL (<100); NON-HDL-C 157.0 MG/DL; POTASSIUM SERUM 4.0 MMOL/L (3.5-5.1); SODIUM LEVEL 143.0 MMOL/L (136-145); TRIGLYCERIDES LEVEL 228.0 MG/DL (<150)
[2025-02-18 13:27] LABS: ESTIMATED AVERAGE GLUCOSE 105.0 MG/DL (60-110)
== END ==
LOC: M WUC 08:32
PROVIDERS: ATTEND Physician Assistant
DX: I10 Essential (primary) hypertension (principal); Z68.35 Body mass index [BMI] 35.0-35.9, adult; E78.6 Lipoprotein deficiency; Z13.1 Encounter for screening for diabetes mellitus

== ENCOUNTER → 2025-07-22 | Outpatient (CLI) | payer BC | LOC: M WHC 13:00 | PROVIDERS: ATTEND Physician Assistant | DX: Z12.31 Encounter for screening mammogram for malignant neoplasm of breast (principal) ==